=== PATIENT | female | born 1935 | race Two or more races ===

== ENCOUNTER 2023-08-25 11:07 | Outpatient (CLI) | payer MEDICARE, MEDICAID | END 2023-08-25 23:59 | disposition critical access hospital (66) | LOC: EMS 11:07 | DX: R55 Syncope and collapse (principal); R53.1 Weakness; R26.81 Unsteadiness on feet; R09.89 Other specified symptoms and signs involving the circulatory and respiratory systems | CPT/HCPCS: A0425; A0429 ==

== ENCOUNTER 2023-08-25 11:09 | Emergency (ER) | payer MEDICARE, MEDICAID ==
--- NOTE | 2023-08-25 11:26 | ED Physician Documentation ---
PD HPI SYNCOPE - Stated complaint Stated Complaint: SYNCOPE - History obtained from History obtained from: Patient, Family (daughter acting to help translate, pt Welsh and Uzbek speaker.), EMS (found pt awake but pale. Conversant. HR 50s regular. BP low normal.) - History of Present Illness Witnessed: Witnessed Timing - onset: How many hours ago (1), Today Duration: Minutes (daughter states pt got lightheaded and pale, without chest pain, headache, nausea, about an hour or so after taking morning meds, and did not have breakfast nor much fluids. Had syncope without fall/injury, lasted 1-2 minutes including slowly rousing. No seizure movements.) Preceding symptoms: Light headed. No: Headache, Chest pain, Nausea / vomiting Associated symptoms: No: Seizure Contributing factors: Decreased PO intake (had not had breakfast nor fluids this morning.). No: Recent med change Similar symptoms before: No diagnosis (daughter states pt had about 4 of these similar but not full LOC in the past 2-3 weeks. Not daily, but other times have been after AM meds and if had not had much fluid/foods. No recent change in meds.) Recently seen: Clinic (had ECHO and stress testing last fall. Wore Ziopatch for 2 weeks and had an episode of brief SVT. No other abn rhythm at that time.) Review of Systems Constitutional: denies: Fever, Chills Nose: denies: Rhinorrhea / runny nose, Congestion Throat: denies: Sore throat Respiratory: denies: Cough GI: denies: Abdominal Pain, Nausea, Vomiting, Diarrhea, Bloody / black stool Neurologic: denies: Altered mental status, Headache, Head injury PD PAST MEDICAL HISTORY - Past Medical History Cardiovascular: Hypertension Respiratory: None Neuro: None Endocrine/Autoimmune: None - Present Medications Home Medications: Ambulatory Orders Medication Instructions Recorded Confirmed Amlodipine Besylate [Norvasc] 10 mg PO DAILY 08/25/23 08/25/23 Aspirin [Adult Aspirin Regimen] 81 mg PO DAILY 08/25/23 08/25/23 Atorvastatin Calcium 40 mg PO DAILY 08/25/23 08/25/23 Isosorbide Mononitrate ER [Imdur] 30 mg PO DAILY 08/25/23 08/25/23 Losartan [Cozaar] 50 mg PO DAILY 08/25/23 08/25/23 carvediloL [Coreg] 25 mg PO BID 08/25/23 08/25/23 - Allergies Allergies/Adverse Reactions: Allergies Allergy/AdvReac Type Severity Reaction Status Date / Time No Known Drug Allergies Allergy Verified 08/25/23 11:36 PD ED PE NORMAL - Vitals Vital signs reviewed: Yes - General General: Alert and oriented X 3 - Neck Neck: Supple, no meningeal sign, No adenopathy - Cardiac Cardiac: RRR (mild bradycardia but not dipping lsower. ), No murmur - Respiratory Respiratory: Clear bilaterally - Abdomen Abdomen: Soft, Non tender - Back Back: No CVA TTP - Derm Derm: Normal color, Warm and dry - Extremities Extremities: No edema, No calf tenderness / cord - Neuro Neuro: Alert and oriented X 3, No motor deficit, No sensory deficit, Normal speech Results - Vitals Vitals: Vital Signs - 24 hr 08/25/23 08/25/23 08/25/23 11:17 12:04 14:23 Temperature 35.9 C L 36.2 C L Heart Rate 55 L 53 L Heart Rate [ 61 Sitting] Heart Rate [ 63 Standing] Heart Rate [ 55 L Supine] Respiratory 19 19 Rate Blood Pressure 129/51 L 121/53 L Blood Pressure 124/69 [Sitting] Blood Pressure 118/63 [Standing] Blood Pressure 125/55 L [Supine] O2 Saturation 94 92 Oxygen O2 Source Room air - EKG (time done) 11:42 EKG releavant findings:: EKG personally interpreted by author of this note. Relevant findings are: Rate: Rate (enter#) (54) Rhythm: Sinus bradycardia, NSR Rubicon: Normal Intervals: Normal HI QRS: Normal Ischemia: Normal ST segments. No: ST elevation c/w ischemia, ST depression - Labs Labs: Laboratory Tests 08/25/23 08/25/23 08/25/23 11:40 11:40 11:40 WBC 4.5 L RBC 4.97 Hgb 14.4 Hct 46.3 MCV 93.2 MCH 29.0 MCHC 31.1 L RDW 13.6 Plt Count 194 MPV 10.7 Neut # (Auto) 2.6 Lymph # (Auto) 1.2 L Towns # (Auto) 0.4 Eos # (Auto) 0.1 Baso # (Auto) 0.0 Absolute Nucleated RBC 0.00 Nucleated RBC % 0.0 Sodium 136 Potassium 4.5 Chloride 106 Carbon Dioxide 25 Anion Gap 5.0 L BUN 22 H Creatinine 1.2 Estimated GFR (MDRD) 43 L Glucose 147 H Calcium 9.7 Magnesium 1.9 Total Bilirubin 0.8 AST 16 ALT 13 Alkaline Phosphatase 72 Troponin I High Sens 8.9 Total Protein 6.7 Albumin 4.0 Globulin 2.7 Albumin/Globulin Ratio 1.5 Lipase 22 - Rads (name of study) new xray Relevant Findings:: Prelim report reviewed (no acute heart failture. ), EMP independent interpretation of test PD Medical Decision Making - ED course Complexity details: re-evaluated patient (seems like BP likely sropped. Takes most of the BP meds in AM. ), considered differential (has had some episodes of AM near syncopw ith syncope this time today. Self oimited an feeling okay now. ), d/w patient, d/w [employer] consultant (crisis intervention counselor cardiology at [facility], who reviewed meds and prior testing. States pt with Ziopatch, stress test and ECHO just this past Nov withut problems.) Departure - Departure Disposition: Home, Self Care Clinical Impression: Medication side effect Episode of syncope Qualifiers: Syncope type: unspecified Qualified Code(s): R55 - Syncope and collapse Condition: Stable Record reviewed to determine appropriate education?: Yes Instructions: ED Fainting Unkn Cause Follow-Up: Sandro Fountain MD [Primary Care Provider] - JULITO SILVA PA [Physician No Access] - Comments: It would sound likely that you are having too much of an effect from your blood pressure medicine in the mornings. This could be combined with under hydration leading to a transient drop in blood pressure. I talked with the on-call provider for the cardiology office in [facility]. Their recommendation was to stop the isosorbide dinitrate. Continue with the other medications though I would change your amlodipine to nighttime from the morning. The atorvastatin at night is still fine. The aspirin any time of day that works. Continue with the carvedilol and losartan twice daily in divided doses. Stay well-hydrated. Low-salt diet of course. Record your blood pressure morning and evening for the next week or so. Follow- up with the cardiology office, call for an appointment. Forms: PCP List Discharge Date/Time: 08/25/23 14:25
--- NOTE | 2023-08-25 11:48 | XRAY Report ---
PROCEDURE: Chest 1V INDICATIONS: syncope TECHNIQUE: One view of the chest was acquired. COMPARISON: None. FINDINGS: Surgical changes and devices: None. Lungs and pleura: No pleural effusions or pneumothorax. Bibasilar atelectasis versus consolidation. Mediastinum: Mediastinal contours appear normal. Heart size is normal. Bones and chest wall: No suspicious bony lesions. Overlying soft tissues appear unremarkable. IMPRESSION: Bibasilar atelectasis versus consolidation. Reviewed by: Samuel Addison MD on 08/25/2023 11:46 AM PDT Approved by: Samuel Addison MD on 08/25/2023 11:46 AM PDT Station ID: [id number]
[2023-08-25 11:49] LABS: BASOPHILS % (AUTO) 0.9 %; EOSINOPHILS # (AUTO) 0.1 10^3/uL (0.0-0.7); EOSINOPHILS % (AUTO) 2.7 %; HCT - HEMATOCRIT 46.3 % (37.0-47.0); HGB - HEMOGLOBIN 14.4 g/dL (12.0-16.0); LYMPHOCYTES # (AUTO) 1.2 10^3/uL (1.5-3.5); LYMPHOCYTES % (AUTO) 27.5 %; MEAN CORPUSCULAR HGB CONC 31.1 g/dL (32.0-36.0); MEAN CORPUSCULAR VOLUME 93.2 fL (81.0-99.0); MEAN PLATELET VOLUME 10.7 fL (7.9-10.8); MONOCYTES # (AUTO) 0.4 10^3/uL (0.0-1.0); MONOCYTES % (AUTO) 9.8 %; NEUTROPHILS # (AUTO) 2.6 10^3/uL (1.5-6.6); NEUTROPHILS % (AUTO) 58.9 %; PLT - PLATELET COUNT 194 10^3/uL (130-450); RED BLOOD COUNT 4.97 10^6/uL (4.20-5.40); RED CELL DISTRIBUTION WIDTH 13.6 % (12.0-15.0); WHITE BLOOD COUNT 4.5 x10^3/uL (4.8-10.8)
[2023-08-25] MEDS: SODIUM CHLORIDE 0.9% 500 ML IV STA (12:01)
[2023-08-25 12:07] LABS: ALBUMIN/GLOBULIN RATIO 1.5 (1.0-2.2); BILIRUBIN,TOTAL 0.8 mg/dL (0.2-1.0); CALCIUM 9.7 mg/dL (8.5-10.3); CREATININE 1.2 mg/dL (0.6-1.3); MAGNESIUM 1.9 mg/dL (1.7-2.3); POTASSIUM 4.5 mmol/L (3.5-4.5); TOTAL PROTEIN 6.7 g/dL (6.4-8.9)
[2023-08-25 14:27] VITALS: BP 121/53; O2SAT 92
== END 2023-08-25 14:25 | disposition home or self-care (01) ==
LOC: ED 11:09
DX: R55 Syncope and collapse (principal); T50.905A Adverse effect of unspecified drugs, medicaments and biological substances, initial encounter; I10 Essential (primary) hypertension; Z79.899 Other long term (current) drug therapy; Z79.82 Long term (current) use of aspirin
CPT/HCPCS: 36415; 80053; 83690; 83735; 84484; 85025; 93005; 96360; 96361; 99284